=== PATIENT | female | born 1980 | race Two or more races ===

== ENCOUNTER → 2019-08-14 | Outpatient (CLI) | payer OTHER | END | disposition home or self-care (01) | LOC: PRENATAL 12:36 | DX: O35.3XX1 Maternal care for (suspected) damage to fetus from viral disease in mother, fetus 1 (principal); O99.212 Obesity complicating pregnancy, second trimester; O09.522 Supervision of elderly multigravida, second trimester; O24.312 Unspecified pre-existing diabetes mellitus in pregnancy, second trimester; O34.211 Maternal care for low transverse scar from previous cesarean delivery; O09.812 Supervision of pregnancy resulting from assisted reproductive technology, second trimester ==

== ENCOUNTER → 2019-09-11 | Outpatient (CLI) | payer OTHER | END | disposition home or self-care (01) | LOC: PRENATAL 08:00 | DX: O24.312 Unspecified pre-existing diabetes mellitus in pregnancy, second trimester (principal); O99.212 Obesity complicating pregnancy, second trimester; O09.292 Supervision of pregnancy with other poor reproductive or obstetric history, second trimester; O34.211 Maternal care for low transverse scar from previous cesarean delivery; O09.812 Supervision of pregnancy resulting from assisted reproductive technology, second trimester ==